=== PATIENT | male | born 1935 | race Caucasian/White ===

== ENCOUNTER 2016-06-15 21:59 | Emergency (ER) | payer MEDICARE, OTHER ==
[~2016-06-15] VITALS: Ht 182.9 cm; Wt 96.4 kg
[~2016-06-15 21:59] MED LIST: ASPI-558 PO; CHOL200014 PO; FINA5TAB40 PO; FURO20TA4 PO; HYDR-3995 PO; MAGN400T6 PO; OMEP20CA10 PO; POTA10CA37 PO; PRAM0.5T3 PO; RANI150T7 PO; RIVA20TA PO
--- OUTSIDE RECORDS SUMMARY | 2016-06-15 22:03 | XMS REPORT | Continuity of Care Document ---
Author Author [facility] Organization [facility] Address Unknown Phone Unavailable Care Team Providers Care Commutator V Ring Assembler Name Role Phone Primary Care Physician Unavailable Source Comments Some departments are not documenting in the electronic medical record. If you do not see the information that you expected, contact Release of Information in the Health Information Management department at [phone] for further assistance in locating additional records.[facility] Active Allergies and Adverse Reactions No Known Allergies Current Medications Prescription Sig. Disp. Refills Start End Date Status Date fish oil /omega-3 fatty Take 1 Cap by mouth Active acids (SEA-OMEGA) daily. 340/1000 mg capsule cholecalciferol (VITAMIN Take 2,000 Units by mouth Active D-3) 1,000 units tablet daily. amLODIPine (NORVASC) 2.5 Take 2.5 mg by mouth Active mg tablet daily. aspirin EC 81 mg tablet Take 81 mg by mouth Active daily. Take with food. pramipexole (MIRAPEX) 1 Take 1 mg by mouth daily. Active mg tablet Takes 0.5mg daily carvedilol (COREG) 12.5 Take 12.5 mg by mouth Active mg tablet daily. Take with food. warfarin (COUMADIN) 5 mg Take 5 mg by mouth daily. Active tablet Mon,wed,fri warfarin (COUMADIN) 2 mg Take 2 mg by mouth daily. Active tablet Sun,e,,sat finasteride (PROSCAR) 5 Take 5 mg by mouth daily. Active mg tablet HYDROcodone/acetaminophen Take 1 Tab by mouth as Active (+) (NORCO) 10/325 mg Needed for Pain tablet ranitidine(+) (ZANTAC) Take 150 mg by mouth Active 150 mg tablet twice daily. metoclopramide HCl Take 5 mg by mouth daily. Active (REGLAN) 5 mg tablet furosemide (LASIX) 20 mg Take 20 mg by mouth every Active tablet morning. Takes 1/2 tab daily potassium chloride(+) Take 10 mEq by mouth Active (KLOR-CON 8) 8 mEq tablet daily. magnesium oxide (MAG-OX) Take 400 mg by mouth Active 400 mg tablet daily. 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 He has no childhood history of a tic disorder, ADD/ADHD or OCD. He does not have myoclonus or lightening like extremely simple motor movement most often triggered by action. Clonazepam helped for a short period of time and the pramipexole has helped for the last five weeks. L ast Assessment & Plan: Formatting of this note may be different from the original. I discussed the diagnosis with the patient,his and their two daughters (who took notes). At the end of this visit I discussed the therapeutic options for the treatment of tic disorders, including Tourette's syndrome. We discuss the benefit and potential adverse effects of haloperidol, pimozide (ORAP), the SSRI family of antidepressants, the alpha 2 agonists clonidine and guanfacine (TENEX) (not recommended for him due to prior heart attacks), baclofen, topiramate and the the atypical antipsychotics. He feels that the pramipexole has completely stopped the movements for the last five weeks except when he was on the inhaler. This may be true pharmacological benefit or this may be the episodic nature of tic disorders. In evaluating treatment success or failure it is important to look at the trend over weeks to months, not day to day My suggestions for treatment, and the order that I suggest trying them should the pramipexole prove not to be of benefit are: Haloperidol starting at 0.5 mg BID and not increased above 5 mg a day Citalopram 20 mg a day up to 40 mg a day or escitalopram starting at 10 mg a day and not going above 30 mg a day Oxazepam 10 mg at HS for two weeks and then one twice a day thereafter Clonidine 0.1 mg at HS or guanfacine (TENEX) 1 mg at HS. For both of these his BP should be check daily in the morning and he should be warned about the potential for orthostatic hypotension Topiramate starting at 12.5 mg at bedtime and increased gradually every week until enough benefit or he experiences cognitive or behavioral side effect, or a maximum dose of 200 mg a day Repisidone 0.5 mg daily of BID (maximum dose 2 mg a day) or quetiapine 12.5 mg BID (maximum dose of 50 mg a day) Encounter Medications Medications fish oil /omega-3 fatty acids (SEA-OMEGA) 340/1000 mg capsule Sig: Take 1 Cap by mouth daily. cholecalciferol (VITAMIN D-3) 1,000 units tablet Sig: Take 2,000 Units by mouth daily. amLODIPine (NORVASC) 2.5 mg tablet Sig: Take 2.5 mg by mouth daily. aspirin EC 81 mg tablet Sig: Take 81 mg by mouth daily. Take with food. DISCONTD: clonazePAM (KLONOPIN) 0.5 mg tablet Sig: Take 0.5 mg by mouth daily. pramipexole (MIRAPEX) 1 mg tablet Sig: Take 1 mg by mouth daily. Takes 0.5mg daily carvedilol (COREG) 12.5 mg tablet Sig: Take 12.5 mg by mouth daily. Take with food. warfarin (COUMADIN) 5 mg tablet Sig: Take 5 mg by mouth daily. Mon,wed,fri warfarin (COUMADIN) 2 mg tablet Sig: Take 2 mg by mouth daily. Sun,tue,thur,sat finasteride (PROSCAR) 5 mg tablet Sig: Take 5 mg by mouth daily. HYDROcodone/acetaminophen(+) (NORCO) 10/325 mg tablet Sig: Take 1 Tab by mouth as Needed for Pain ranitidine(+) (ZANTAC) 150 mg tablet Sig: Take 150 mg by mouth twice daily. metoclopramide HCl (REGLAN) 5 mg tablet Sig: Take 5 mg by mouth daily. furosemide (LASIX) 20 mg tablet Sig: Take 20 mg by mouth every morning. Takes 1/2 tab daily potassium chloride(+) (KLOR-CON 8) 8 mEq tablet Sig: Take 10 mEq by mouth daily. magnesium oxide (MAG-OX) 400 mg tablet Sig: Take 400 mg by mouth daily. Patient Instructions Please keep on the pramipexole. I will send a letter to your health care provider detailing the medications that we discussed and the doses to start at. He will follow-up with his home [facility] health care providers. I also discussed with him about stretching his calf and thigh muscles prior to going to bed to help prevent the painful muscle cramps. Social History Tobacco Use Types Packs/Day Years Used Date Former Smoker Last Filed Vital Signs Vital Sign Reading Time Taken Blood Pressure 137/75 10/07/2015 10:51 AM CDT Pulse 65 10/07/2015 10:51 AM CDT Temperature - - Respiratory Rate - - Height 1.829 m (6') 10/07/2015 10:51 AM CDT Weight 89.812 kg (198 lb) 10/07/2015 10:51 AM CDT Body Mass Index 26.85 10/07/2015 10:51 AM CDT Oxygen Saturation - - Plan of Care Health Maintenance Due Date Last Done Comments Physical (Comprehensive) 12/23/1942 Exam Pertussis Vaccine 12/23/1946 Tetanus Vaccine 12/23/1952 Shingles Vaccine 1995 Prevnar/Pneumovax (#1) 12/23/2000 Influenza Vaccine 11/04/2016 Results from Last 3 Months Not on file
--- OUTSIDE RECORDS SUMMARY | 2016-06-15 22:03 | XMS REPORT | Referral Summary ---
Author Author [facility] Organization [facility] Address Unknown Phone Unavailable Care Team Providers Care Junior Oracle Dba Name Role Phone Neil Bello Primary Care Physician [phone] Encounter VC Date(s): 05/02/16 - 05/02/16 [facility] [address] [place] [address] [place] [phone] [place] Discharge Diagnosis: BPH (benign prostatic hypertrophy) Discharge Disposition: 01-Home or Self Care Attending Physician: Faraz Shea MD Admitting Physician: Faraz Shea MD Referring Physician: En Bello MD Vital Signs Most recent to 1 oldest [Reference Range]: Blood Pressure 118/68 mmHg [90-140/60-90 mmHg] (05/02/16 2:44 PM) Problem List Condition Effective Dates Status Health Status Informant Aortic stenosis, Active mild(Confirmed) Arthritis(Confirmed) Active BPH (benign Active prostatic hypertrophy)(Confirm ed) CAD (coronary artery Active disease)(Confirmed) Carpal tunnel Active syndrome, bilateral(Confirmed) Cataracts, Active bilateral(Confirmed) Chicken Active pox(Confirmed) Chronic Active pancreatitis(Confirm ed) DDD (degenerative Active disc disease), cervical(Confirmed) DDD (degenerative Active disc disease), lumbar(Confirmed) Dermatophytosis of Active nail(Confirmed) Irregular right Active sided prostate gland(Confirmed) Diverticulosis(Confi Active rmed) Dupuytrens Active contracture L palm(Confirmed) Elevated Active PSA(Confirmed) Hearing Active loss(Confirmed) High Active cholesterol(Confirme d) Hyperlipidemia(Confi Active rmed) Hypertension(Confirm Active ed) Nocturia(Confirmed) Active Obesity(Confirmed) Active patient Osteoarthritis(Confi Active rmed) Pain in Active limb(Confirmed) Prostatism(Confirmed Active ) Renal Active cyst(Confirmed) Sleep apnea - 2007 Active severe(Confirmed) Lumbar spinal Active stenosis(Confirmed) L 3rd trigger Active finger(Confirmed) Type II diabetes Active mellitus(Confirmed) Allergies, Adverse Reactions, Alerts No Known Medication Allergies Medications amLODIPine 2.5 mg oral tablet See Instructions, TAKE 1 TABLET EVERY DAY, # 90 tabs, 1 Refill(s), eRx: [facility], TAKE 1 TABLET EVERY DAY Start Date: 06/22/15 Status: Ordered Aspirin Low Dose 81 mg oral delayed release tablet 1 tabs, Oral, Daily Start Date: 11/15/13 Status: Ordered carvedilol 12.5 mg oral tablet See Instructions, TAKE 1/2 TABLET TWICE DAILY, # 60 tabs, 4 Refill(s), eRx: [facility], TAKE 1/2 TABLET TWICE DAILY Start Date: 02/09/15 Status: Ordered cephalexin 500 mg oral capsule 500 mg 1 caps, Oral, QID, TID, 0 Refill(s) Start Date: 04/28/16 Status: Ordered clonazePAM 0.5 mg oral tablet 0.5 mg 1 tabs, Oral, BID, Do not fill- medication is being filled by pt's neurologist, # 60 tabs, 0 Refill(s), other reason (Rx) Start Date: 04/06/15 Status: Ordered cyclobenzaprine 10 mg oral tablet 10 mg 1 tabs, Oral, Bedtime (once a day), as needed for spasm, # 30 tabs, 0 Refill(s), other reason (Rx) Start Date: 02/17/15 Status: Ordered finasteride 5 mg oral tablet See Instructions, TAKE 1 TABLET AT BEDTIME, # 90 tabs, 0 Refill(s), Pharmacy: [facility], TAKE 1 TABLET AT BEDTIME Start Date: 05/18/15 Status: Ordered Fish Oil See Instructions, fish oil-fat acid [id number] [id number] 1200mg ([id number] ) cap; ON HOLD Start Date: 11/15/13 Status: Ordered [employer] 10 mg-325 mg oral tablet 1 tabs, Oral, q4hr, as needed for pain, 0 Refill(s) Start Date: 07/24/15 Status: Ordered ranitidine 150 mg, Oral, Daily, 0 Refill(s) Start Date: 07/15/15 Status: Ordered Vitamin D3 0 Refill(s) Start Date: 07/24/15 Status: Ordered warfarin 1 mg oral tablet See Instructions, TAKE 1 TABLET EVERY DAY, # 90 tabs, 1 Refill(s), eRx: [facility], TAKE 1 TABLET EVERY DAY Start Date: 08/24/15 Status: Ordered warfarin 5 mg oral tablet See Instructions, TAKE 1 TABLET EVERY DAY, # 90 tabs, 1 Refill(s), eRx: [facility], TAKE 1 TABLET EVERY DAY Start Date: 08/24/15 Status: Ordered Results No data available for this section Immunizations Given and Recorded Vaccine Date Status Refusal Reason influenza virus vaccine, inactivated 12/26/14 Recorded influenza virus vaccine, live 01/03/12 Given pneumococcal 13-valent conjugate vaccine 12/26/14 Recorded tetanus toxoid 06/05/13 Given tetanus-diphth toxoids (Td) adult/adol 05/14/04 Given zoster vaccine live 10/04/11 Given Procedures Procedure Date Related Diagnosis Body Site S/P carpal tunnel release, right 05/16/07 Excision of Dupuytren's contracture of palm 2007 Release of trigger finger 2007 S/P carpal tunnel release, bilateral 2007 S/P cystoscopy 06/09/04 Transrectal needle biopsy of prostate 06/09/04 H/O cervical spine surgery Hernia repair History of lumbar spine surgery - rods S/p appendectomy S/P cataract extraction and insertion of intraocular lens S/p cholecystectomy S/P vasectomy Social History Social History Type Response Smoking Status Former smoker; Type: Cigarettes; Tobacco use per day: Pack ; Number of years: 30 Assessment and Plan Extracted from: Title: Office Visit Note Author: Faraz Shea MD Date: 05/02/16 Assessment/Plan BPH (benign prostatic hypertrophy) Going forwardI discussed with the patient about the option of following with me annually for his prostateversus following with his primary doctor and seeing me as necessary for any urological issues. I do not thinkthere is any benefit of PSA screeningfor him at his ageand considering his other medical issues. I also advised himthat he can stop taking finasteride. He said he will completethe once he has now and will stop. He'll follow with his primary doctor and see me as necessary.
--- OUTSIDE RECORDS SUMMARY | 2016-06-15 22:04 | XMS REPORT | Referral Summary ---
Author Author [facility] Organization [facility] Address Unknown Phone Unavailable Care Team Providers Care Proof Machine Operator Name Role Phone Neil Bello Primary Care Physician [phone] Encounter Date(s): 04/28/16 - 04/28/16 [facility], [address] [place] [phone] [place] Discharge Disposition: 01-Home or Self Care Attending Physician: Shahab Manjarrez APRN Admitting Physician: Shahab Manjarrez APRN Vital Signs Most recent to 1 oldest [Reference Range]: Temperature Tympanic 35.9 degC [36.6-38.1 degC] *LOW* (04/28/16 11:09 AM) Peripheral Pulse 93 bpm Rate [60-100 bpm] (04/28/16 11:09 AM) Respiratory Rate 18 br/min [14-20 br/min] (04/28/16 11:09 AM) Blood Pressure 118/58 mmHg [90-140/60-90 mmHg] (04/28/16 11:09 AM) SpO2 94 % (04/28/16 11:09 AM) Problem List Condition Effective Dates Status Health [...] DAY, # 90 tabs, 1 Refill(s), eRx: [facility], TAKE 1 TABLET EVERY DAY Start Date: 06/22/15 Status: Ordered Aspirin Low Dose 81 mg oral delayed release tablet 1 tabs, Oral, Daily Start Date: 11/15/13 Status: Ordered carvedilol 12.5 mg oral tablet See Instructions, TAKE 1/2 TABLET TWICE DAILY, # 60 tabs, 4 Refill(s), eRx: [facility], TAKE 1/2 TABLET TWICE [...] BEDTIME, # 90 tabs, 0 Refill(s), Pharmacy: [facility], TAKE 1 TABLET AT BEDTIME Start Date: 05/18/15 Status: Ordered Fish Oil See Instructions, fish oil-fat acid comb8-herb [id number] 1200mg ([id number] ) cap; ON HOLD Start Date: 11/15/13 Status: Ordered [place] 10 mg-325 mg oral tablet 1 tabs, [...] Number of years: 30 Assessment and Plan No data available for this section
[2016-06-15 22:05] VITALS: Ht 182.9 cm; Wt 96.4 kg
--- OUTSIDE RECORDS SUMMARY | 2016-06-15 22:05 | XMS REPORT | Continuity of Care Document ---
Author Author [facility] Organization [facility] Address Unknown Phone Unavailable Support Name Relationship Address Phone MEGHNA BARRON MD Caregiver [address] [place] [address] Unavailable SHAGUFTA KIMBALL Caregiver [address] [place] [address] Unavailable ANTONIO MANCILLA Next Of Kin [address] [place], [place] [phone] Insurance Providers Guarantor Sandeep Mancilla Address [address] [place] [address] Email DENIED/NO TO PT PORTAL Payer [employer] Policy Number [id number] Subscriber's Name Sandeep Mancilla Relationship 18 Self Group Number PLANE Effective Date 00 Payer Medicare Policy Number [id number] Subscriber's Name Sandeep Mancilla Relationship 18 Self Effective Date 00 Chief Complaint and Reason for Visit Chief Complaint Hypertension Reason for Visit Elevated blood pressure Problems Active Problems Medical Problem Onset Date Status Acute gastritis Unknown Acute Anticoagulated on Coumadin Unknown Chronic CAD (coronary artery disease) Unknown Chronic CHF (congestive heart failure) Unknown Chronic GERD (gastroesophageal reflux disease) Unknown Chronic HTN (hypertension) Unknown Chronic Hx of pulmonary embolus Unknown Acute Inadequate anticoagulation Unknown Acute Intractable myoclonic epilepsy Unknown Acute Myoclonic disorder Unknown Acute Myoclonus Unknown Acute Numbness and tingling of right face Unknown Acute Numbness of right hand Unknown Acute Pulmonary embolism Unknown Acute Restless legs syndrome Unknown Chronic Seizures Unknown Chronic Sleep apnea Unknown Chronic Warfarin-induced coagulopathy Unknown Acute Past Problems Medical Problem Onset Date Acute gastritis Unknown Cellulitis Unknown Cellulitis and abscess of leg Unknown Chest pain Unknown Coronary artery disease Unknown Elevated blood pressure Unknown Hx of pulmonary embolus Unknown Warfarin-induced coagulopathy Unknown Wound dehiscence Unknown Medications Current Home Medications Medication Dose Units Route Directions Days Qty Instructions Start Date Aspirin (Aspir 81) 81 Mg Tablet. 81 Mg Oral Daily 03/23/12 Cholecalciferol (Vitamin D3) (Vitamin D3) 2,000 Unit Tablet 2,000 Unit Oral Daily 07/08/15 Doxycycline Hyclate 100 Mg Capsule 100 Mg Oral Twice A Day Finasteride 5 Mg Tablet 5 Mg Oral Bedtime 06/02/09 Furosemide 20 Mg Tablet 1 Tab Oral Twice A Day 11/29/15 Hydrocodone/Acetaminophen (Hydrocodon-Acetaminophn 10-325) 1 Each Tablet 1 Tab Oral Every 6 Hours as needed for Pain 03/07/15 Magnesium Oxide 400 Mg Tablet 400 Mg Oral Daily 10/31/15 Nitroglycerin (Nitrostat) 0.4 Mg Tablet 0.4 Mg Oral Every 5 Minutes X 3 11/22/15 Omeprazole 20 Mg Capsule.dr 20 Mg Oral Before Breakfast 10/31/15 Potassium Chloride 10 Meq Capsule.er 10 Meq Oral Twice A Day Pramipexole Di-Hcl (Mirapex) 0.5 Mg Tablet 0.5 Mg Oral Twice A Day 08/19/15 Ranitidine Hcl 150 Mg Tablet 150 Mg Oral Twice A Day 08/19/15 Rivaroxaban (Xarelto) 20 Mg Tablet 20 Mg Oral Give With Supper Past Home Medications Medication Directions Ordered Status Aspirin 81 Mg Tablet, 1 Tab Oral Mon,Mon,And Mon05/27/09 Discontinued Carvedilol (Coreg) 12.5 Mg Tablet, 6.25 Mg Oral Twice A Day as needed for Hypotension 06/02/09 Discontinued Cholecalciferol (Vitamin D) 1,000 Unit Tablet, 1 Tab Oral Daily 06/02/09 Discontinued Docosahexanoic Acid/Epa (Fish Oil Conc 1,000 Mg Softgel) 1 Cap Capsule, 2 Cap Oral Daily 06/02/09 Discontinued Furosemide 40 Mg Tablet, 40 Mg Oral Twice A Day 11/22/15 Discontinued Lisinopril 20 Mg Tablet, 1 Tab Oral Daily 06/02/09 Discontinued Red Yeast Rice Extract (Red Yeast Rice) 600 Mg Capsule, 600 Mg Oral Daily Discontinued Rosuvastatin Calcium (Crestor) 5 Mg Tablet, 5 Mg Oral Daily 12/10/11 Discontinued Simvastatin 20 Mg Tablet, 1 Tab Oral Daily 06/02/09 Discontinued Warfarin Sodium 1 Mg Tablet, 1 Mg Oral Sututhsa@Hs 12/10/11 Discontinued Social History Social History Problem Response Recorded Date/Time Onset Date Status Hx Substance Use No 02/01/2016 8:29pm Not Applicable Not Applicable Hx Alcohol Use No 02/01/2016 8:29pm Not Applicable Not Applicable Has the pt used tobacco in the last 12 months No 08/19/2015 6:45pm Not Applicable Not Applicable Tobacco Usage none 07/08/2015 10:16am Not Applicable Not Applicable Query Response Start Date Stop Date Smoking Status Former smoker Hospital Discharge Instructions No hospital discharge instructions. Plan of Care Discharge Date 02/01/16 9:03pm Disposition 01 DISCHARGED HOME, SELF-CARE Condition at Discharge Improved Instructions/Education Provided High Blood Pressure Prescriptions See Medication Section Referrals SHAGUFTA KIMBALL Address: [address] [place] [address] Additional Instructions/Education If your blood pressure becomes elevated again sit or lay down and relax. Do not take repeated blood pressures. If you continue to have elevated blood pressure call your PCP for re-evaluation or you may return to ED. Follow treatment plan. Care Plan and Goals Physician Care Plan Problem: Elevated blood pressure Goal: Follow up with primary care provider Instructions: Take medications and follow care plan as discussed/written Functional Status No functional status results. Allergies, Adverse Reactions, Alerts Allergen Type Severity Reaction Status Last Updated hydrocodone bit Adverse Reaction Unknown HALLUCINATIONS Active 02/01/16 Bpjxtcz-Hxe-Iji Reductase Inhibitor Allergy Unknown Active 02/01/16 Immunizations Query Response on File Recorded Date/Time Hx Influenza Vaccination Y 01/1508/19/15 6:45pm Hx Pneumococcal Vaccination Y 201308/19/15 6:45pm Hx Tetanus, Diptheria, Pertussis UNKNOWN 03/23/12 6:57pm Hx Influenza Vaccination Y 01/1508/19/15 6:45pm Hx Tetanus, Diptheria, Pertussis UNKNOWN 03/23/12 6:57pm Hx Tetanus Toxoid Vaccination N "MANY YEARS AGO" 04/25/09 7:00pm Influenza Vaccine Hx 201502/01/16 8:29pm Tetanus Diptheria Vaccine History UTD 02/01/16 8:29pm Vital Signs Acute Vital Signs Vital Response Date/Time Temperature (Fahrenheit) 98.5 deg F (96.8 - 99.1) 02/01/2016 9:03pm Temperature (Calculated Celsius) 36.08124 degrees C (36.0 - 37.3) 02/01/2016 9:03pm Pulse Rate (adult) 87 bpm (60 - 100) 02/01/2016 9:03pm Respiratory Rate 18 breaths/min (10 - 20) 02/01/2016 9:03pm O2 Sat by Pulse Oximetry 97 % (90 - 100) 02/01/2016 9:03pm Blood Pressure 120/57 mm Hg 02/01/2016 9:03pm Height (Feet) 5 feet 02/01/2016 7:23pm Height (Inches) 11.00 inches 02/01/2016 7:23pm Weight (Kilograms) 93.300 kg 02/01/2016 7:23pm Body Mass Index (BMI) 28.0 02/01/2016 7:23pm Results Laboratory Results Test Name Result Units Flags Reference Collection Date/Time Result Date/ Time Comments Total Bilirubin 0.50 MG/DL 0.20-1.30 11/22/2015 2:51pm 11/22/2015 3: 22pm Alkaline Phosphatase 99 U/L 38-126 11/22/2015 2:51pm 11/22/2015 3:22pm Total Protein 6.9 G/DL 6.3-8.2 11/22/2015 2:51pm 11/22/2015 3:22pm Albumin 3.7 G/DL 3.5-5.0 11/22/2015 2:51pm 11/22/2015 3:22pm Globulin 3.2 G/DL 2.4-3.6 11/22/2015 2:51pm 11/22/2015 3:22pm Albumin/Globulin Ratio 1.2 RATIO 1.1-2.2 11/22/2015 2:51pm 11/22/2015 3 :22pm Aspartate Amino Transf (AST/SGOT) 18 U/L 17-59 11/22/2015 2:51pm 2015 3:22pm Alanine Aminotransferase (ALT/SGPT) 10 U/L L 21-72 11/22/2015 2:51pm 3:22pm Troponin I 0.042 ng/ml 0-0.12 11/22/2015 2:51pm 11/22/2015 3:33pm Troponin values with a difference of 55% increase from orginal troponin value represent a true biological DELTA value. (%increase Calc=Orginal Troponin value, divided by subsequent Troponin value, multiplied by 100) ML-Qax-T-Type Natriuretic Peptide 3570 PG/ML H 0-175 11/22/2015 2:51pm 11/22/2015 3:27pm Rule in cut points: <50 years old=450; 50-75 years old=900; >75 years old=1800; When utilizing ProBNP rule-in cut points, adjustment for impaired renal function is typically not required. Plasma Lactate 1.8 MMOL/L 0.6-2.2 11/22/2015 2:51pm 11/22/2015 3:17pm White Blood Count 5.2 T/MM3 4.5-11.0 11/29/2015 10:11/29/2015 10: 30pm Red Blood Count 3.84 M/MM3 L 4.50-5.90 11/29/2015 10:11/29/2015 10: 30pm Hemoglobin 12.0 GM/DL L 13.5-17.5 11/29/2015 10:11/29/2015 10:30pm Hematocrit 36.5 % L 41-53 11/29/2015 10:11/29/2015 10:30pm Mean Corpuscular Volume 95.1 UM3 80-100 11/29/2015 10:11/29/2015 10:30pm Mean Corpuscular Hemoglobin 31.3 UUG 26-34 11/29/2015 10:2015 10:30pm Mean Corpuscular Hemoglobin Concent 32.9 GM/DL 31-37 11/29/2015 10:11/29/2015 10:30pm RDW Standard Deviation 47.3 FL 36.9-50.2 11/29/2015 10:11/29/2015 10:30pm Platelet Count 267 T/MM3 130-400 11/29/2015 10:11/29/2015 10:30pm Mean Platelet Volume 7.9 UM3 L 9.4-12.4 11/29/2015 10:11/29/2015 10 :30pm Neutrophils (%) (Auto) 63.3 % 33-66 11/29/2015 10:11/29/2015 10: 30pm Lymphocytes (%) (Auto) 24.3 % 23-45 11/29/2015 10:11/29/2015 10: 30pm Monocytes (%) (Auto) 8.1 % 0-9.0 11/29/2015 10:11/29/2015 10:30pm Eosinophils (%) (Auto) 3.7 % 0-4 11/29/2015 10:11/29/2015 10:30pm Basophils (%) (Auto) 0.4 % 0-2 11/29/2015 10:11/29/2015 10:30pm Immature Granulocyte % (Auto) 0.2 % 0.0-0.5 11/29/2015 10:2015 10:30pm Absolute Neutrophils (auto) 3.3 T/MM3 1.8-7.7 11/29/2015 10:2015 10:30pm Absolute Lymphocytes (auto) 1.3 T/MM3 1-4.8 11/29/2015 10:2015 10:30pm Absolute Monocytes (auto) 0.4 T/MM3 0-0.8 11/29/2015 10:2015 10:30pm Absolute Eosinophils (auto) 0.2 T/MM3 0-0.5 11/29/2015 10:2015 10:30pm Absolute Basophils (auto) 0.0 T/MM3 0-0.2 11/29/2015 10:2015 10:30pm Absolute Immature Granulocyte (auto 0.01 T/MM3 0.00-0.03 11/29/2015 10: 11/29/2015 10:30pm Icterus Index < 2 0-7 11/29/2015 10:11/29/2015 10:38pm Chemistry Specimen Hemolysis < 15 0-25 11/29/2015 10:11/29/2015 10:38pm 0-25: Specimen Exhibited No Hemolysis. Turbidity < 20 0-20 11/29/2015 10:11/29/2015 10:38pm Sodium Level 139 MEQ/L 134-144 11/29/2015 10:11/29/2015 10:38pm Potassium Level 4.0 MEQ/L 3.6-5 11/29/2015 10:11/29/2015 10:38pm Chloride Level 104 MEQ/L 98-107 11/29/2015 10:11/29/2015 10:38pm Carbon Dioxide Level 23 MEQ/L 22-30 11/29/2015 10:22pm 11/29/2015 10: 38pm Anion Gap 12 MEQ/L 5-15 11/29/2015 10:22pm 11/29/2015 10:38pm Blood Urea Nitrogen 15.0 MG/DL 9-11/29/2015 10:22pm 11/29/2015 10: 38pm Creatinine 1.0 MG/DL 0.8-1.5 11/29/2015 10:22pm 11/29/2015 10:38pm BUN/Creatinine Ratio 15 RATIO 6-11/29/2015 10:22pm 11/29/2015 10: 38pm Glomerular Filtration Rate Calc 72 11/29/2015 10:22pm 11/29/2015 10 :38pm Glucose Level 179 MG/DL H 75-110 11/29/2015 10:pm 11/29/2015 10:38pm Calculated Osmolality 273 MOSM/KG 261-280 11/29/2015 10:pm 2015 10:38pm Calcium Level 9.2 MG/DL 8.4-10.2 11/29/2015 10:22pm 11/29/2015 10:38pm Microbiology Results Procedure Source Organism/Result Collection Date/Time Result Date/Time Result Status Blood Culture Peripheral/Iv Start NO GROWTH AFTER 5 DAYS 11/22/2015 2:51pm 11/27/2015 3:04pm Final WOUND CULTURE DEEP TISS-AER/AN Leg, Left Lower PREVOTELLA DISIENS 2015 10:20pm 12/05/2015 8:02am Final BACTEROIDES FRAGILIS 11/29/2015 10:20pm 12/05/2015 8:02am Final PSEUDOMONAS AERUGINOSA 11/29/2015 10:20pm 12/05/2015 8:02am Final ENTEROCOC FAECALIS - (GROUP D) 11/29/2015 10:20pm 12/05/2015 8:02am Final WOUND CULTURE DEEP TISS-AER/AN Leg, Left ANAEROCOCCUS PREVOTII 12/31/2015 11 :15am 01/10/2016 8:03am Final BACTEROIDES FRAGILIS 12/31/2015 11:15am 01/10/2016 8:03am Final FINEGOLDIA MAGNA 12/31/2015 11:15am 01/10/2016 8:03am Final PSEUDOMONAS AERUGINOSA 12/31/2015 11:15am 01/10/2016 8:03am Final ENTEROCOC FAECALIS - (GROUP D) 12/31/2015 11:15am 01/10/2016 8:03am Final Procedures Procedure Status Date Provider(s) CHEST X-RAY 2VW FRONTAL&LATL Completed 11/22/15 COMPREHEN METABOLIC PANEL Completed 11/22/15 ASSAY OF LACTIC ACID Completed 11/22/15 ASSAY OF NATRIURETIC PEPTIDE Completed 11/22/15 ASSAY OF TROPONIN QUANT Completed 11/22/15 COMPLETE CBC W/AUTO DIFF WBC Completed 11/22/15 BLOOD CULTURE FOR BACTERIA Completed 11/22/15 BLOOD CULTURE FOR BACTERIA Completed 11/22/15 THER/PROPH/DIAG IV INF INIT Completed 11/22/15 EMERGENCY DEPT VISIT Completed 11/22/15 [id number] ITEM OR SERVICE Completed 11/22/15 861673"INJECTION, CEFTRIAXONE SODIUM, PER 250 MG" Completed 11/22/15 886999"INFUSION, NORMAL SALINE SOLUTION , 250 CC" Completed 11/22/15 PLACE NEEDLE IN VEIN Completed 11/29/15 METABOLIC PANEL TOTAL CA Completed 11/29/15 COMPLETE CBC W/AUTO DIFF WBC Completed 11/29/15 CULTURE OTHR SPECIMN AEROBIC Completed 11/29/15 CULTR BACTERIA EXCEPT BLOOD Completed 11/29/15 SMEAR GRAM STAIN Completed 11/29/15 THER/PROPH/DIAG IV INF INIT Completed 11/29/15 EMERGENCY DEPT VISIT Completed 11/29/15 ELLIE SUBQ TISSUE 20 SQ CM/< Completed 12/02/15 ELLIE SUBQ TISSUE ADD-ON Completed 12/02/15 APPLY MULTLAY COMPRS LWR LEG Completed 12/02/15 147972"BORDER, EACH DRESSING" Completed 12/02/15 870688"WOUND CLEANSERS, ANY TYPE, ANY SIZE" Completed 12/02/15 [id number] ITEM OR SERVICE Completed 12/02/15 E&M LEVEL - FACILITY Completed 12/02/15 APPLY MULTLAY COMPRS LWR LEG Completed 12/09/15 868404"BORDER, EACH DRESSING" Completed 12/09/15 E&M LEVEL - FACILITY Completed 12/09/15 APPLY MULTLAY COMPRS LWR LEG Completed 12/24/15 E&M LEVEL - FACILITY Completed 12/24/15 ELLIE SUBQ TISSUE 20 SQ CM/< Completed 12/16/15 ELLIE SUBQ TISSUE ADD-ON Completed 12/16/15 APPLY MULTLAY COMPRS LWR LEG Completed 12/16/15 201616"BORDER, EACH DRESSING" Completed 12/16/15 002513"BORDER, EACH DRESSING" Completed 12/16/15 E&M LEVEL - FACILITY Completed 12/16/15 EXTREMITY STUDY Completed 12/16/15 ELLIE SUBQ TISSUE 20 SQ CM/< Completed 12/31/15 APPLY MULTLAY COMPRS LWR LEG Completed 12/31/15 CULTURE OTHR SPECIMN AEROBIC Completed 12/31/15 CULTR BACTERIA EXCEPT BLOOD Completed 12/31/15 CULTURE ANAEROBE IDENT EACH Completed 12/31/15 CULTURE ANAEROBE IDENT EACH Completed 12/31/15 CULTURE ANAEROBE IDENT EACH Completed 12/31/15 CULTURE AEROBIC IDENTIFY Completed 12/31/15 CULTURE AEROBIC IDENTIFY Completed 12/31/15 MICROBE SUSCEPTIBLE DIFFUSE Completed 12/31/15 MICROBE SUSCEPTIBLE DIFFUSE Completed 12/31/15 MICROBE SUSCEPTIBLE DIFFUSE Completed 12/31/15 MICROBE SUSCEPTIBLE DIFFUSE Completed 12/31/15 MICROBE SUSCEPTIBLE DIFFUSE Completed 12/31/15 MICROBE SUSCEPTIBLE DIFFUSE Completed 12/31/15 MICROBE SUSCEPTIBLE DIFFUSE Completed 12/31/15 MICROBE SUSCEPTIBLE DIFFUSE Completed 12/31/15 MICROBE SUSCEPTIBLE DIFFUSE Completed 12/31/15 MICROBE SUSCEPTIBLE DIFFUSE Completed 12/31/15 MICROBE SUSCEPTIBLE DIFFUSE Completed 12/31/15 MICROBE SUSCEPTIBLE DIFFUSE Completed 12/31/15 MICROBE SUSCEPTIBLE SHARON Completed 12/31/15 MICROBE SUSCEPTIBLE SHARON Completed 12/31/15 SMEAR GRAM STAIN Completed 12/31/15 918757"BORDER, EACH DRESSING" Completed 12/31/15 718008"BORDER, EACH DRESSING" Completed 12/31/15 [id number] ITEM OR SERVICE Completed 12/31/15 E&M LEVEL - FACILITY Completed 12/31/15 ELLIE SUBQ TISSUE 20 SQ CM/< Completed 01/04/16 APPLY MULTLAY COMPRS LWR LEG Completed 01/04/16 622612"BORDER, EACH DRESSING" Completed 01/04/16 858782"BORDER, EACH DRESSING" Completed 01/04/16 [id number] ITEM OR SERVICE Completed 01/04/16 E&M LEVEL - FACILITY Completed 01/04/16 APPLY MULTLAY COMPRS LWR LEG Completed 01/06/16 228548"BORDER, EACH DRESSING" Completed 01/06/16 E&M LEVEL - FACILITY Completed 01/06/16 Encounters Encounter Location Arrival/Admit Date Discharge/Depart Date Attending Provider Departed Emergency Room [facility] 02/01/16 7:15pm 02/01/16 9: 03pm MEGHAN BARRON MD Registered Clinic [facility] 02/01/16 8:49am AGUILAR ARANGO MD Registered [facility] 01/25/16 10:05am PRAMOD WRIGHT MD Registered Clinic [facility] 01/25/16 9:24am AGUILAR ARANGO MD Registered Clinic [facility] 01/21/16 7:52am AGUILAR ARANGO MD Registered Clinic [facility] 01/20/16 10:36am GIOVANNI MORALES MD Registered [facility] 01/18/16 9:28am AGUILAR ARANGO MD Registered [facility] 01/14/16 10:21am AGUILAR ARANGO MD Registered Clinic [facility] 01/11/16 10:47am AGUILAR ARANGO MD Registered Clinic [facility] 01/06/16 9:52am GIOVANNI MORALES MD Registered Clinic [facility] 01/04/16 10:56am AGUILAR ARANGO MD Registered [facility] 12/31/15 10:40am AGUILAR ARANGO MD Registered [facility] 12/24/15 1:20pm AGUILAR ARANGO MD Registered [facility] 12/16/15 11:57am AGUILAR ARANGO MD Registered [facility] 12/16/15 10:22am AGUILAR ARANGO MD Registered Clinic [facility] 12/09/15 9:21am AGUILAR ARANGO MD Registered Clinic [facility] 12/02/15 7:56am AGUILAR ARANGO MD Departed Emergency Room [facility] 11/29/15 9:26pm 11/29/15 11: 46pm MEGHAN BARRON MD Departed Emergency Room [facility] 11/22/15 2:19pm 11/22/15 4: 18pm ELISABET SEAMAN DO Recent Diagnosis
--- OUTSIDE RECORDS SUMMARY | 2016-06-15 22:05 | XMS REPORT | Summary of Care ---
Author Author Jorge FERNANDEZMary Jane Organization Unknown Address [address], [place] [address] Phone Unavailable Care Team Providers Care Dry Placer Machine Operator Name Role Phone Mary Jane Patel APRN Unavailable Unavailable Griffin Rose, Melonie Unavailable Unavailable Jasmyne Rose, Alba Unavailable Unavailable Shon, L Unavailable Unavailable Unavailable Unavailable Functional Status Name Dates Details Functional status health issues are not documented Status: Name Dates Details Cognitive status health issues are not documented Status: Problems Name Dates Details Tinnitus of left ear (388.30, H93.12) Status: Active Sensorineural hearing loss (389.10, H90.5) Status: Active 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 Quantity: 30 * Start 23-Jan-2014 Active AmLODIPine Besylate 2.5 MG Oral Tablet TAKE 1 TABLET DAILY. * Quantity: 90 Refills: 3 * Start 23-Jan-2014 Active Aspirin 81 MG TABS TAKE 1 TABLET DAILY. * Refills: 0 * Start 23-Jan-2014 Active Finasteride 5 MG Oral Tablet TAKE ONE TABLET BY MOUTH DAILY * Quantity: 90 Refills: 2 * Start 23-Jan-2014 Active Vitamin D3 2000 UNIT Oral Capsule take 1 capsule daily * Refills: 0 * Start 23-Jan-2014 Active Oxford 10-325 MG Oral Tablet TAKE 1 TABLET EVERY 4 TO 6 HOURS NEEDED FOR PAIN. * Refills: 0 * Start 02-Jul-2015 Active RaNITidine HCl - 150 MG Oral Tablet 1 PO BID x 90 days * Quantity: 180 Refills: 0 Ankush Moya M.D. * Start 02-Jul-2015 Active Pramipexole Dihydrochloride 0.5 MG Oral Tablet * Refills: 0 Toan Medley M.D. * Start Active Furosemide 20 MG Oral Tablet TAKE 1/2 TABLET DAILY. * Refills: 0 Toan Medley M.D. * Start Active Omeprazole 20 MG Oral Capsule Delayed Release * Refills: 0 Toan Medley M.D. * Start 01-Dec-2015 Active Xarelto 20 MG Oral Tablet * Refills: 0 Toan Medley M.D. * Start 01-Dec-2015 Active Potassium Chloride ER 10 MEQ Oral Tablet Extended Release * Refills: 0 * Start 01-Dec-2015 Active Magnesium Oxide 400 MG Oral Capsule * Refills: 0 * Start 01-Dec-2015 Active LevoFLOXacin 750 MG Oral Tablet * Refills: 0 * Start 17-Dec-2015 Active Supplies AutoBiPAP 12/16 cm H2O, Permanent use, G47.33, Heated humidity, [id number], mask, headgear, filters, heated tubing, water chamber,chinstrap * Quantity: 1 Refills: 0 Toan Medley M.D. * Start 17-Dec-2015 Active Supplies please increase BiPAP pressures to ipap of 14 epap of 8, DX KOTA G47.33 * Quantity: 1 Refills: 0 TungMary Jane romero APRN * Start 17-Mar-2016 Active Allergies and Adverse Reactions Name Dates Details No Known Drug Allergies (Allergy) Status: Active Past Medical History Name Dates Details History of fatigue (V13.89, Z87.898) Status: Resolved History of heart disease (V12.50, Z86.79) Status: Resolved History of hyperlipidemia (V12.29, Z86.39) Status: Resolved History of hypertension (V12.59, Z86.79) Status: Resolved History of shortness of breath (V13.89, Z87.898) Status: Resolved History of sleep apnea (V13.89, Z86.69) Status: Resolved Procedures Procedure Dates Details History of Back Surgery Procedures not documented Immunization Name Dates Details Immunizations not documented Family History Name Dates Details Family history of cardiac disorder (V17.49, Z82.49) Comments: Family History Status: Active Family history of diabetes mellitus (V18.0, Z83.3) Comments: Family History Status: Active Family history of malignant neoplasm (V16.9, Z80.9) Comments: Family History Status: Active Social History Name Dates Details - Status: Name Dates Details Former smoker Vital Signs Date Test Result Details 17-Mar-2016 11:01 BP Systolic 146 mm[Hg] Status: Comments: Location: ; Position: BP Diastolic 74 mm[Hg] Status: Comments: Location: ; Position: Heart Rate 80 /min Status: Comments: Location: ; Physical Findings 20 Status: Comments: Respiration Height 72 in Status: Weight 209 lb Status: Physical Findings 96 Status: Comments: O2 Saturation Body Mass Index Calculated 28.35 kg/m2 Status: Body Surface Area Calculated 2.17 m2 Status: Results Date Description Value Details Results not documented Plan of Care Name Dates Details Planned Observations Planned Goals not documented Planned Encounters Appointment; Provider: Mary Jane Patel A.P.R.N. On 16-Jun-2016 10:00 Interventions Provided Medication Changes* Supplies - Start Instructions Name Dates Details Instructions not documented Encounters Appointment; Toan Medley M.D. Encounter Diagnosis: Problem not documented On 17-Dec-2015 10:00 Appointment; Toan Medley M.D. Encounter Diagnosis: Problem not documented On 01-Dec-2015 09:00 Appointment; Toan Medley M.D. Encounter Diagnosis: Problem not documented On 09:15 Appointment; Ankush Moya M.D. Encounter Diagnosis: Problem not documented On 02-Jul-2015 08:30
--- OUTSIDE RECORDS SUMMARY | 2016-06-15 22:06 | XMS REPORT | Continuity of Care Document ---
Author Author [facility] Organization [facility] Address Unknown Phone Unavailable Allergies Active Description Code Type Severity Reaction Onset Reported/Identified Relationship to Patient Clinical Status Yes NKDA N/A N/A Yes No Known Drug Intolerances No Known Drug Intolerances Drug Allergy Unknown N/A 12/31/2001 Yes No Known Contrast Allergies No Known Contrast Allergies Drug Allergy Unknown N/A 01/02/2007 Yes No Known Drug Allergies No Known Drug Allergies Drug Allergy Unknown N/A 01/02/2007 Yes No Known Food Allergies No Known Food Allergies Drug Allergy Unknown N/A 01/02/2007 Yes No Known Other Allergies No Known Other Allergies Drug Allergy Unknown N/A 01/02/2007 Yes HYDROcodone NKMA N/A Itching 07/03/2013 Yes traMADol NKMA N/A significant itching/restlessne 07/03/2013 Yes Atorvastatin Calcium NKMA N/A [id number] 11/15/2013 Yes Pravastatin Sodium NKMA N/A [id number] 11/15/2013 Yes hydrocodone hydrocodone Drug Allergy Unknown ITCHING SOMETIMES 01/06/2014 Yes No Known Drug Intolerances No Known Drug Intolerances Drug Allergy Unknown NONE 01/06/2014 Yes No Known Medication Allergies NKMA N/A N/A 02/25/2014 Medications Problems Date Dx Coded Attending Type Code Diagnosis Diagnosed By 01/07/2014 Neel Guzmán MD 272.0 PURE HYPERCHOLESTEROLEM 01/07/2014 Neel Guzmán MD 272.4 HYPERLIPIDEMIA NEC/NOS 01/07/2014 Neel Guzmán MD 327.23 OBSTRUCTIVE SLEEP APNEA (ADULT) (PEDIATRIC ) 01/07/2014 Neel Guzmán MD 401.9 HYPERTENSION NOS 01/07/2014 Neel Guzmán MD 412 OLD MYOCARDIAL INFARCT 01/07/2014 Neel Guzmán MD 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 01/07/2014 Neel Guzmán MD 428.0 CONGESTIVE HEART FAILURE NOS 01/07/2014 Neel Guzmán MD 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 01/07/2014 Neel Guzmán MD 716.90 ARTHROPATHY NOS-UNSPEC 01/07/2014 Neel Guzmán MD 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 01/07/2014 Neel Guzmán MD 722.71 CERV DISC DIS W MYELOPAT 01/07/2014 Neel Guzmán MD 722.73 LUMB DISC DIS W MYELOPAT 01/07/2014 Neel Guzmán MD 737.10 KYPHOSIS NOS 01/07/2014 Neel Guzmán MD 790.29 OTHER ABNORMAL GLUCOSE 01/07/2014 Neel Guzmán MD V12.51 HX-VENOUS THROMBOSIS EMBOLISM 01/07/2014 Neel Guzmán MD V15.82 HISTORY OF TOBACCO USE 01/07/2014 Neel Guzmán MD V45.4 ARTHRODESIS STATUS 01/07/2014 Neel Guzmán MD V45.82 PERCUTANEOUS TRANSLUM CORON ANGIOPLASTY STATUS 01/07/2014 Neel Guzmán MD V58.61 ANTICOAGULANTS,LT,CURRENT USE 01/07/2014 Neel Guzmán MD V58.66 LONG-TERM (CURRENT) USE OF ASPIRIN Procedures Code Description Performed By Performed On 38.91 ARTERIAL CATHETERIZATION Neel Guzmán MD 01/07/2014 41.98 BONE MARROW OPS Neel Maier MD 01/07/2014 77.79 EXCISE BONE FOR GFT NEC Neel Guzmán MD 01/07/2014 81.05 DORSAL DORSOLUMBAR FUSION OF POSTERIOR COL/TECHN Neel Guzmán MD 01/07/2014 81.63 FUSION/REFUS OF 4-8 VERTEBRAE Neel Guzmán MD 01/07/2014 Results Test Result Range HEMOGLOBIN - 01/07/14 05:35 MEAN CELL VOLUME 90.6 fl 80.0-100.0 HEMOGLOBIN 14.9 gm/dL 14.0-18.0 PROTHROMBIN TIME WITH INR - 01/07/14 05:35 INTERNATIONAL NORMAL RATIO 1.1 0.9-1.1 PROTHROMBIN TIME 11.6 sec 9.3-12.2 METABOLIC PANEL, BASIC - 01/07/14 05:35 POTASSIUM 4.4 mmol/L 3.5-5.3 EST GFR (MDRD) > 60 mL/min > 59 ANION GAP 9 mmol/L 5-15 EST CrCl (CG) > 60 mL/min > 59 GLUCOSE 143 mg/dL 70-99 CALCIUM 9.1 mg/dL 8.5-10.1 BLOOD UREA NITROGEN 18 mg/dL 7-20 CREATININE 0.9 mg/dL 0.8-1.3 SODIUM 141 mmol/L 135-148 CHLORIDE 106 mmol/L 98-110 CARBON DIOXIDE 26 mmol/L 21-32 ARTERIAL BLOOD GAS - 01/07/14 10:45 ABG BASE EXCESS -5.3 meq/L -3.0-3.0 ABG BICARBONATE 18.7 meq/L 23.0-28.0 ABG PCO2 32 mm Hg 34-45 ABG PH 7.39 7.35-7.45 ABG PO2 298 mm Hg 75-100 ABG O2 SATURATION 99 % 93-100 HGB HCT (CCL) - 01/07/14 10:45 MEAN CELL VOLUME 91.3 fl 80.0-100.0 HEMOGLOBIN 11.3 gm/dL 14.0-18.0 HEMATOCRIT 33.5 % 40.0-54.0 POTASSIUM (CCL) - 01/07/14 10:45 POTASSIUM 3.8 mmol/L 3.5-5.3 GLUCOSE (CCL) - 01/07/14 10:45 GLUCOSE 169 mg/dL 70-99 CBC - 01/08/14 05:01 MEAN CELL HGB 31.1 pg 27.0-33.0 MEAN CELL HGB CONCENTRATION 34.1 g/dL 32.0-37.0 MEAN CELL VOLUME 91.2 fl 80.0-100.0 RED BLOOD CELL 3.76 m/cumm 4.00-6.00 RED CELL DISTRIBUTION WIDTH 14.0 % 11.0- 15.6 WHITE BLOOD CELL 10.4 k/cumm 5.0-10.0 HEMOGLOBIN 11.7 gm/dL 14.0-18.0 HEMATOCRIT 34.3 % 40.0-54.0 PLATELET COUNT 160 k/cumm 150-400 METABOLIC PANEL, BASIC - 01/08/14 05:01 POTASSIUM 4.5 mmol/L 3.5-5.3 EST GFR (MDRD) > 60 mL/min > 59 ANION GAP 8 mmol/L 5-15 EST CrCl (CG) > 60 mL/min > 59 GLUCOSE 191 mg/dL 70-99 CALCIUM 8.4 mg/dL 8.5-10.1 BLOOD UREA NITROGEN 14 mg/dL 7-20 CREATININE 0.8 mg/dL 0.8-1.3 SODIUM 139 mmol/L 135-148 CHLORIDE 105 mmol/L 98-110 CARBON DIOXIDE 26 mmol/L 21-32 HEMOGLOBIN A1C - 01/08/14 11:55 HEMOGLOBIN A1C 6.3 % < 5.7 GLUCOSE (POC) - 01/08/14 15:37 GLUCOSE (POC) 143 mg/dL 70-99 GLUCOSE (POC) - 01/09/14 11:55 GLUCOSE (POC) 196 mg/dL 70-99 GLUCOSE (POC) - 01/09/14 15:08 GLUCOSE (POC) 219 mg/dL 70-99 GLUCOSE (POC) - 01/09/14 22:11 GLUCOSE (POC) 147 mg/dL 70-99 GLUCOSE (POC) - 01/10/14 05:27 GLUCOSE (POC) 175 mg/dL 70-99 GLUCOSE (POC) - 01/10/14 10:44 GLUCOSE (POC) 283 mg/dL 70-99 GLUCOSE (POC) - 01/10/14 14:41 GLUCOSE (POC) 135 mg/dL 70-99 Encounters ACCT No. Visit Date/Time Discharge Status Pt. Type Provider Facility Loc./Unit Complaint [id number] 06/05/2013 14:37:00 06/05/2013 23 :59:59 CLS Outpatient [id number] 04/02/2013 14:53:00 04/02/2013 23 :59:59 CLS Outpatient
--- OUTSIDE RECORDS SUMMARY | 2016-06-15 23:41 | XMS REPORT | Continuity of Care Document ---
Author Author [facility] Organization [facility] Address Unknown Phone Unavailable Care Team Providers Care Ammonia Refrigeration Worker Name Role Phone Primary Care Physician Unavailable Source Comments Some departments are not documenting in the electronic medical record. If you do not see the information that you expected, contact Release of Information in the Health Information Management department at [phone] for further assistance in locating additional records.[facility] Active Allergies and Adverse Reactions No [...] at. He will follow-up with his home [facility] health care providers. I also discussed with [...]
--- OUTSIDE RECORDS SUMMARY | 2016-06-15 23:44 | XMS REPORT | Continuity of Care Document ---
Author Author [facility] Organization [facility] Address Unknown Phone Unavailable Allergies Active [...] itching/restlessne 07/03/2013 Yes Atorvastatin Calcium NKMA N/A [id number] 11/15/2013 Yes Pravastatin Sodium NKMA N/A [id number] 11/15/2013 Yes hydrocodone hydrocodone Drug Allergy Unknown ITCHING SOMETIMES 01/06/2014 Yes No Known Drug Intolerances No Known Drug Intolerances Drug Allergy Unknown NONE 01/06/2014 Yes No Known Medication Allergies NKMA N/A N/A 02/25/2014 Medications Problems Date Dx Coded Attending Type Code Diagnosis Diagnosed By 01/07/2014 Neel Guzámn MD 272.0 PURE HYPERCHOLESTEROLEM 01/07/2014 Neel Guzmán MD 272.4 HYPERLIPIDEMIA NEC/NOS 01/07/2014 Neel Guzmán MD 327.23 OBSTRUCTIVE SLEEP APNEA (ADULT) (PEDIATRIC ) 01/07/2014 Neel Guzmán MD 401.9 HYPERTENSION NOS 01/07/2014 Neel Guzmán MD 412 OLD MYOCARDIAL INFARCT 01/07/2014 Neel Guzmán MD 414.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 Type Provider Facility Loc./Unit Complaint [id number] 06/05/2013 14:37:00 06/05/2013 23 :59:59 CLS Outpatient [id number] 04/02/2013 14:53:00 04/02/2013 23 :59:59 CLS Outpatient
[2016-06-15] MEDS ORDERED: LORAZEPAM 2 MG/ML INJECTION IM ONE (23:45)
[2016-06-15] MEDS ORDERED: NORMAL SALINE 1,000 ML IV ONE (23:45)
[2016-06-16 00:01] LABS: BASOPHILS % (AUTO) 0.3 % (0-2); EOSINOPHILS # (AUTO) 0.1 T/MM3 (0-0.5); HCT - HEMATOCRIT 40.8 % (41-53); IMMATURE GRANULOCYTE # (AUTO) 0.01 T/MM3 (0.00-0.03); IMMATURE GRANULOCYTE % (AUTO) 0.2 % (0.0-0.5); LYMPHOCYTES # (AUTO) 2.3 T/MM3 (1-4.8); LYMPHOCYTES % (AUTO) 38.2 % (23-45); MEAN CORPUSCULAR HGB 29.9 UUG (26-34); MEAN CORPUSCULAR HGB CONC(MCHC 34.3 GM/DL (31-37); MEAN PLATELET VOLUME 8.5 UM3 (9.4-12.4); MONOCYTES # (AUTO) 0.4 T/MM3 (0-0.8); MONOCYTES % (AUTO) 7.2 % (0-9.0); NEUTROPHILS #(AUTO)-ABSOLUTE 3.1 T/MM3 (1.8-7.7); NEUTROPHILS % (AUTO) 52.1 % (33-66); RED BLOOD COUNT 4.69 M/MM3 (4.50-5.90)
[2016-06-16 00:11] LABS: ANION GAP 14 MEQ/L (5-15); BUN/CREATININE RATIO 36 RATIO (6-26); CALCIUM 9.3 MG/DL (8.4-10.2); CHLORIDE 105 MEQ/L (98-107); CK - CPK 270 U/L (55-170); CO2 - CARBON DIOXIDE 25 MEQ/L (22-30); CREATININE 0.8 MG/DL (0.8-1.5); GLOMERULAR FILTRATION RATE 93; GLUCOSE 153 MG/DL (75-110); POTASSIUM 4.2 MEQ/L (3.6-5); SODIUM 144 MEQ/L (134-144)
--- NOTE | 2016-06-16 00:21 | ERPDOC ---
Departure Disposition Decision Date: Jun 16, 2016 Disposition Decision Time: 00:36 Disposition: 01 DISCHARGED HOME, SELF-CARE Impression Impression Impression: Primary Impression: Myoclonus Additional Impression: KOTA treated with BiPAP Severity: Severe Condition: Improved Seen By: Physician only Referrals: SHAGUFTA KIMBALL (Family) 1 Week GARFIELD ZAMORA MD 1 Week Patient Instructions: Muscle Spasm (ED) Problems/Meds/Labs Reviewed?: Yes Medications reviewed and manag: Yes Additional Instructions: We have treated your spasms in the ER. Take the depakote at night to help with your spasms. Use the klonazepam only for spasms that don't respond to the depakote. Follow up with your doctor. Call Dr. Zamora's office for a follow up appointment. Follow up care ordered?: Yes Mental Status: Alert, Oriented Scripts Clonazepam (Klonopin) 0.5 Mg Tablet 0.5 TAB PO [id number] Y for SPASMS, #14 TAB Prov: JULYELISABET DO 06/16/16 Divalproex Sodium (Depakote ER) 500 Mg Tab.er.24h 1 TAB PO HS for 30 Days, #30 TAB Prov: JULYELISABET DO 06/16/16 HPI - General Medical General Chief Complaint: Headache Stated Complaint: JERKING WILL NOT STOP Time Seen by Provider: 23:31 Source: patient, family Exam Limitations: no limitations HPI - General Medical Initial Comments 80yo man presented to the ER tonight for tremors/spasms. Pt has a chronic h/o spasms, but has not had a solid dx, despite referral to several specialists. Pt has been taking mirapex 0.5mg bid, which was effective initially, but has had to be increased. Pt was seen by Dr. Rodriguez in [place]; then sent to [facility] where it was suggested that he had a tic disorder. Pt has not followed up with Dr. Rodriguez. Occurred At: home Onset: Rapid Duration: 1-3 hrs Severity: moderate Hx of Similar Symptoms: Yes Allergies: Coded Allergies: Swvazwu-Dgf-Opd Reductase Inhibitor (Verified Allergy, Unknown, 06/15/16) hydrocodone bit (Verified Adverse Reaction, Unknown, HALLUCINATIONS, ) Past History Patient Surgical History CABG- October of 2015 Past Medical History Metabolic: hypertension ENMT: sleep apnea Cardiac: A-fib, CAD, [place] Respiratory: pulmonary embolus GI: gallbladder disease Male: BPH Neurological: seizures Musculoskeletal: back pain, neck pain Hematologic: DVT Surgical History General: appendix, back, gallbladder, hernia, neck Cardiac: cardiac bypass, cardiac cath Joint: carpal tunnel Family History Family PMH: FOUND: hypertension Vaccines Hx Influenza Vaccination: Yes (01/15) Hx Pneumococcal Vaccination: Yes (2013) Social History Substance Use Type: does not use Alcohol Intake: none Marital Status: Sexuality: female partner Household Members: spouse Review of Systems Musculoskeletal General: cramps, pain, weakness Comments Shaking All other Systems All Other Systems: Reviewed and Negative Physical Exam General General Nourishment: well nourished, well developed, appears stated age, no acute distress, adult, obese General Body Habitus: well groomed Vitals and Pain First Documented Vital Signs Date Time Temp Pulse Resp B/P Pulse Ox O2 Delivery O2 Flow Rate FiO2 06/15/16 22:05 98.3 92 14 142/65 98 Room Air Weight: Kilograms: 96.400 Height (feet): 6 Height (inches): 0 Triage Pain Scale: RN VS reviewed by Provider: Yes Musculoskeletal (brief) Musculoskeletal Brief: NOT FOUND: deformity, loss of motion, spasm, tenderness Comments Periodic, whole-body spasms. Pt does not lose consciousness, no post-ictal period. No loss of bowel or bladder. Neurologic (brief) Neurological Brief: FOUND: CN w/o gross def to obs, DTR 2/4 all extremities, gait w/o gross def to obs, motor-no gross deficits, sensory-no gross deficits, NOT FOUND: Babinski Supervisory Exam Head: atraumatic Eyes: PERRL Nares: no exudate Neck: trachea midline Chest: symmetric Abdomen: non-distended Musculoskeletal: no deformity or atrophy Skin: pink, dry Psychological: alert, appropriate Differential Diagnoses Considering: CVA, DKA, Encephalitis, Hypo/Hyperglycemia, Hypo/Hyperkalemia, Hypo/Hypernatremia, Metabolic, Psychosis, Seizure Progress Results/Orders Orders Procedure Category Date Status Time Lorazepam (Ativan) PHA 06/15/16 Complete 23:45 Iv Lock (Ed Only) EDM 06/15/16 Transmitted 23:45 Cbc W/Auto LAB 06/15/16 Complete Diff-Reflex Manual 23:45 Bmp - Basic Metabolic LAB 06/15/16 Complete Panel 23:45 Normal Saline (Normal PHA 06/15/16 Complete Saline Iv) 23:45 Ck - Cpk LAB 06/15/16 Complete 23:55 Divalproex Er PHA 06/16/16 Complete (Depakote Er) 01:00 Lab Results Laboratory Tests Test 06/15/16 23:55 White Blood Count 6.0T/MM3 Red Blood Count 4.69M/MM3 Hemoglobin 14.0GM/DL Hematocrit 40.8% Mean Corpuscular Volume 87.0UM3 Mean Corpuscular Hemoglobin 29.9UUG Mean Corpuscular Hemoglobin Concent 34.3GM/DL RDW Standard Deviation 44.0FL Platelet Count 198T/MM3 Mean Platelet Volume 8.5UM3 Immature Granulocyte % (Auto) 0.2% Neutrophils (%) (Auto) 52.1% Lymphocytes (%) (Auto) 38.2% Monocytes (%) (Auto) 7.2% Eosinophils (%) (Auto) 2.0% Basophils (%) (Auto) 0.3% Absolute Immature Granulocyte (auto 0.01T/MM3 Absolute Neutrophils (auto) 3.1T/MM3 Absolute Lymphocytes (auto) 2.3T/MM3 Absolute Monocytes (auto) 0.4T/MM3 Absolute Eosinophils (auto) 0.1T/MM3 Absolute Basophils (auto) 0.0T/MM3 Turbidity < 20 Sodium Level 144MEQ/L Potassium Level 4.2MEQ/L Chloride Level 105MEQ/L Carbon Dioxide Level 25MEQ/L Anion Gap 14MEQ/L Blood Urea Nitrogen 29.0MG/DL Creatinine 0.8MG/DL Glomerular Filtration Rate Calc 93 BUN/Creatinine Ratio 36RATIO Glucose Level 153MG/DL Calculated Osmolality 286MOSM/KG Calcium Level 9.3MG/DL Icterus Index < 2 Total Creatine Kinase 270U/L Chemistry Specimen Hemolysis < 15 Medications Current ED Medications Lorazepam 1 mg 1 mg O ONCE IM Last administered on 06/15/16 23:35; Start 02/19 at 23:45; Stop 06/15/16 at 23:46; Status DC Sodium Chloride (Normal Saline IV) 1,000 ml @ 0 mls/hr Q0M ONCE IV Last administered on 06/16/16 00:07; Start 06/15/16 at 23:45; Stop 06/15/16 at 23:47 ; Status DC Divalproex Sodium (Depakote Er) 500 mg O ONCE PO Last administered on t 01:07; Start 06/16/16 at 01:00; Stop 06/16/16 at 01:01; Status DC Progress Progress Discussed ddx, prognosis, and treatment with pt and family who voiced understanding. F/u with Dr. Zamora as outpt. Consult/PCP Consult/PCP : Physician Contacted: Dr. Zamora Time Called: 00:21 Time of first response: 00:30 Type of discussion: Phone Consult/PCP Discussion Details Discussed presentation, prior evaluation, and possible treatment. Recommends [facility] depakote with prn smith. ELISABET SEAMAN DO Jun 16, 2016 00:21
--- NOTE | 2016-06-16 00:30 | NUR ---
PROVIDER MAY IN TO SEE PATIENT.
[2016-06-16] MEDS ORDERED: DIVA500T4 PO (00:38)
[2016-06-16] MEDS ORDERED: CLON0.5T PO (00:38)
[2016-06-16] MEDS ORDERED: DIVALPROEX ER 500 MG TABLET PO ONE (01:00)
[2016-06-16 01:14] VITALS: BP 142/67; PULSE 76; RESP 16; TEMP 98.3; O2SAT 98
== END 2016-06-16 01:14 | disposition home or self-care (01) ==
LOC: ED 21:59
DX: G25.3 Myoclonus (principal); G47.33 Obstructive sleep apnea (adult) (pediatric)
CPT/HCPCS: 80048; 82550; 85025; 96360; 96372; 99284; A9270; J2060; J7030

== ENCOUNTER 2016-06-26 20:41 | Emergency (ER) | payer MEDICARE, OTHER ==
[~2016-06-26] VITALS: Ht 182.9 cm; Wt 96.4 kg
[~2016-06-26 20:41] MED LIST changes: +CLON0.5T PO; +DIVA500T4 PO; -OMEP20CA10 PO
--- OUTSIDE RECORDS SUMMARY | 2016-06-26 20:45 | XMS REPORT | Continuity of Care Document ---
Author Author [facility] Organization [facility] Address Unknown Phone Unavailable Care Team Providers Care Sap Bw Architect Name Role Phone Primary Care Physician Unavailable Source Comments Some departments are not documenting in the electronic medical record. If you do not see the information that you expected, contact Release of Information in the Health Information Management department at [phone] for further assistance in locating additional records.[facility] Active Allergies and Adverse Reactions No Known [...] at. He will follow-up with his home [facility] health care providers. I also discussed with [...]
--- OUTSIDE RECORDS SUMMARY | 2016-06-26 20:45 | XMS REPORT | Summary of Care ---
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 * Start 17-Dec-2015 Active Supplies please increase BiPAP pressures to ipap of 14 epap of 8, DX KOTA G47.33 * Quantity: 1 Refills: 0 Tungate Liset FERNANDEZissa * Start 17-Mar-2016 Active Supplies BiPAP supplies, masks, equipment, and maintance. Dx KOTA. please send download of data today and in one month to our office in [place]. * Quantity: 1 Refills: 0 Tungate SPOT SPRAYER, Mary Jane * Start 16-Jun-2016 Active Allergies and Adverse Reactions Name Dates [...] smoker Vital Signs Date Test Result Details 16-Jun-2016 09:59 BP Systolic 132 mm[Hg] Status: Comments: Location: ; Position: BP Diastolic 80 mm[Hg] Status: Comments: Location: ; Position: Heart Rate 95 /min Status: Comments: Location: ; Physical Findings 18 Status: Comments: Respiration Height 72 in Status: Weight 212 lb Status: Physical Findings 97 Status: Comments: O2 Saturation Body Mass Index Calculated 28.75 kg/m2 Status: Body Surface Area Calculated 2.18 m2 Status: Results Date Description Value Details Results not documented Plan of Care Name Dates Details Planned Observations Planned Goals not documented Planned Encounters Appointment; Provider: Mary Jane Patel A.P.R.N. On 14-Jul-2016 11:15 Interventions Provided Medication Changes* Supplies - Start Instructions Name Dates Details Instructions not documented Encounters Appointment; Mary Jane Patel A.P.R.N. Encounter Diagnosis: Problem not documented On 17-Mar-2016 11:15 Appointment; Toan Medley M.D. Encounter Diagnosis: Problem not documented On 17-Dec-2015 10:00 Appointment; Toan Medley M.D. Encounter Diagnosis: Problem not documented On 01-Dec-2015 09:00 Appointment; Toan Medley M.D. Encounter Diagnosis: Problem not documented On 09:15 Appointment; Ankush Moya M.D. Encounter Diagnosis: Problem not documented On 02-Jul-2015 08:30
--- OUTSIDE RECORDS SUMMARY | 2016-06-26 20:46 | XMS REPORT | Summary of Care ---
Author Author Jorge FERNANDEZ Mary Jane Organization Unknown Address [address], [place] [id number] Phone Unavailable Care Team Providers Care Ticket Counter Name Role Phone Lion Rose, Gary Unavailable Unavailable Mary Jane Patel APRN Unavailable Unavailable Griffin Rose, Melonie Unavailable Unavailable Jasmyne Rose, Alba Unavailable Unavailable Wedel, L Unavailable Unavailable Unavailable Unavailable Functional Status [...] * Refills: 0 * Start 23-Jan-2014 Active [place] 10-325 MG Oral Tablet TAKE 1 TABLET [...] cm H2O, Permanent use, G47.33, Heated humidity, [id number], mask, headgear, filters, heated tubing, water chamber,chinstrap * Quantity: 1 Refills: 0 Toan Medley M.D. * Start 17-Dec-2015 Active Supplies please increase BiPAP pressures to ipap of 14 epap of 8, DX KOTA G47.33 * Quantity: 1 Refills: 0 Mary Jane Patel APRN * Start 17-Mar-2016 Active Supplies BiPAP supplies, masks, equipment, and maintance. Dx KOTA. please send download of data today and in one month to our office in [place]. * Quantity: 1 Refills: 0 Mary Jane Patel APRN * Start 16-Jun-2016 Active Oxygen nocturnal oximetry on room air and on BiPAP (dx G47.33)fax results to * Quantity: 1 Refills: 0 Sonu Seymour M.D. * Start 20-Jun-2016 Active Supplies increase Vpap settings to min pressure support of 5 max pressure support of 10, min EPAP 8 Max IPAP 18. assist client with mask fit * Quantity: 1 Refills: 0 Mary Jane Patel APRN * Start 20-Jun-2016 Active Allergies and Adverse Reactions Name Dates [...] Interventions Provided Medication Changes* Supplies - Start * Supplies - Start Instructions Name Dates Details Instructions not documented Encounters Appointment; Mary Jane Patel A.P.R.N. Encounter Diagnosis: Problem not documented On 17-Mar-2016 11:15 Appointment; Toan Medley M.D. Encounter Diagnosis: Problem not documented On 17-Dec-2015 10:00 Appointment; Toan Medley M.D. Encounter Diagnosis: Problem not documented On 01-Dec-2015 09:00 Appointment; Toan Medley M.D. Encounter Diagnosis: Problem not documented On 09:15 Appointment; Anuksh Moya M.D. Encounter Diagnosis: Problem not documented On 02-Jul-2015 08:30
--- OUTSIDE RECORDS SUMMARY | 2016-06-26 20:48 | XMS REPORT | Continuity of Care Document ---
Author Author [facility] Organization [facility] Address Unknown Phone Unavailable Support Name Relationship Address Phone JULYELISABET DO Caregiver [address] [place] [address] Unavailable SHAGUFTA KIMBALL Caregiver [address] [place] [address] Unavailable ANTONIO MANCILLA Next Of Kin [address], [place] [id number] Insurance Providers Guarantor Sandeep Mancilla Address [address] [place] [address] Email DENIED 16 Payer [employer] Policy Number [id number] Subscriber's Name Sandeep Mancilla Relationship 18 Self Group Number PLANE Effective Date 00 Payer Medicare Policy Number [id number] Subscriber's Name Sandeep Mancilla Relationship 18 Self Effective Date 00 Chief Complaint and Reason for Visit Chief Complaint Headache Reason for Visit Myoclonus [id number] Problems Active Problems Medical Problem Onset Date [...] Acute Numbness of right hand Unknown Acute KOTA treated with BiPAP Unknown Acute Pulmonary embolism Unknown Acute Restless [...] Route Directions Days Qty Instructions Start Date Acetaminophen/Hydrocodone Bitart ([place] 10-325 Tablet) 1 Each Tablet 1 Tab Oral Every 6 Hours as needed for Pain 03/07/15 Aspirin (Aspir 81) 81 Mg Tablet.dr 81 Mg Oral Daily 03/23/12 Cholecalciferol (Vitamin D3) (Vitamin D3) 2,000 Unit Tablet 2,000 Unit Oral Daily 07/08/15 Clonazepam (Klonopin) 0.5 Mg Tablet 0.5 Tab Oral Every 12 Hrs Prn as needed for Spasms 14 Tablet 06/16/16 Divalproex Sodium (Depakote Er) 500 Mg Tab.er.24h 1 Tab Oral Bedtime 30 Days 30 Tablet 06/16/16 Finasteride 5 Mg Tablet 5 Mg Oral Bedtime 06/02/09 Furosemide 20 Mg Tablet 1 Tab Oral Twice A Day 11/29/15 Magnesium Oxide 400 Mg Tablet 400 Mg Oral Daily 10/31/15 Potassium Chloride 10 Meq Capsule.er 10 Meq Oral Daily 10/31/15 Pramipexole Di-Hcl (Mirapex) 0.5 Mg Tablet 0.5 [...] Tablet, 1 Tab Oral Daily 06/02/09 Discontinued Omeprazole 20 Mg Capsule.dr, 20 Mg Oral Daily 10/31/15 Discontinued Red Yeast Rice Extract (Red Yeast [...] Onset Date Status Hx Substance Use No 06/15/2016 10:30pm Not Applicable Not Applicable Hx Alcohol Use No 06/15/2016 10:30pm Not Applicable Not Applicable Has the pt used tobacco in the last 12 months No 08/19/2015 6:45pm Not Applicable Not Applicable Tobacco Usage none 07/08/2015 10:16am Not Applicable Not Applicable Query Response Start Date Stop Date Smoking Status Former smoker Hospital Discharge Instructions No hospital discharge instructions. Plan of Care Discharge Date 06/16/16 1:14am Disposition 01 DISCHARGED HOME, SELF-CARE Condition at Discharge Improved Instructions/Education Provided Muscle Spasm (ED) Prescriptions See Medication Section Referrals SHAGUFTA KIMBALL Order Date: 1 Week Address: [address] [place] [id number] Note: GARFIELD ZAMORA MD Order Date: 1 Week Address: [address] [place] [address] [phone] Additional Instructions/Education We have treated your spasms in the ER. Take the depakote at night to help with your spasms. Use the klonazepam only for spasms that don't respond to the depakote. Follow up with your doctor. Call Dr. Zamora's office for a follow up appointment. Care Plan and Goals Physician Care Plan Problem: Myoclonus Goal: Follow up with primary care provider Instructions: Take medications and follow care plan as discussed/written Functional Status No functional status results. Allergies, Adverse Reactions, Alerts Allergen Type Severity Reaction Status Last Updated hydrocodone bit Adverse Reaction Unknown HALLUCINATIONS Active 06/15/16 Zbsgnlw-Tvi-Jrd Reductase Inhibitor Allergy Unknown Active 06/15/16 Immunizations Query Response on File Recorded Date/Time Hx Influenza Vaccination Y 01/1508/19/15 6:45pm Hx Pneumococcal Vaccination Y 201308/19/15 6:45pm Hx Tetanus, Diptheria, Pertussis UNKNOWN 03/23/12 6:57pm Hx Influenza Vaccination Y 01/1508/19/15 6:45pm Hx Tetanus, Diptheria, Pertussis UNKNOWN 03/23/12 6:57pm Hx Tetanus Toxoid Vaccination N "MANY YEARS AGO" 04/25/09 7:00pm Influenza Vaccine Hx 201506/15/16 10:30pm Tetanus Diptheria Vaccine History UTD 06/15/16 10:30pm Vital Signs Acute Vital Signs Vital Response Date/Time Temperature (Fahrenheit) 98.3 deg F (96.8 - 99.1) 06/15/2016 10:05pm Temperature (Calculated Celsius) 36.72499 degrees C (36.0 - 37.3) 06/15/2016 10:05pm Pulse Rate (adult) 76 bpm (60 - 100) 06/16/2016 12:48am Respiratory Rate 16 breaths/min (10 - 20) 06/16/2016 12:48am O2 Sat by Pulse Oximetry 98 % (90 - 100) 06/16/2016 12:48am Blood Pressure 142/67 mm Hg 06/16/2016 12:48am Height (Feet) 6 feet 06/15/2016 10:05pm Height (Inches) 0 inches 06/15/2016 10:05pm Weight (Kilograms) 96.400 kg 06/15/2016 10:05pm Body Mass Index (BMI) 28.0 06/15/2016 10:05pm Results Laboratory Results Test Name Result Units Flags Reference Collection Date/Time Result Date/ Time Comments White Blood Count 6.0 T/MM3 4.5-11.0 06/15/2016 11:55pm 06/16/2016 12: 01am Red Blood Count 4.69 M/MM3 4.50-5.90 06/15/2016 11:55pm 06/16/2016 12: 01am Hemoglobin 14.0 GM/DL 13.5-17.5 06/15/2016 11:55pm 06/16/2016 12:01am Hematocrit 40.8 % L 41-53 06/15/2016 11:55pm 06/16/2016 12:01am Mean Corpuscular Volume 87.0 UM3 80-100 06/15/2016 11:55pm 06/16/2016 12:01am Mean Corpuscular Hemoglobin 29.9 UUG 26-34 06/15/2016 11:55pm 2016 12:01am Mean Corpuscular Hemoglobin Concent 34.3 GM/DL 31-37 06/15/2016 11:55pm 06/16/2016 12:01am RDW Standard Deviation 44.0 FL 36.9-50.2 06/15/2016 11:55pm 06/16/2016 12:01am Platelet Count 198 T/MM3 130-400 06/15/2016 11:55pm 06/16/2016 12:01am Mean Platelet Volume 8.5 UM3 L 9.4-12.4 06/15/2016 11:55pm 06/16/2016 12 :01am Neutrophils (%) (Auto) 52.1 % 33-66 06/15/2016 11:55pm 06/16/2016 12: 01am Lymphocytes (%) (Auto) 38.2 % 23-45 06/15/2016 11:55pm 06/16/2016 12: 01am Monocytes (%) (Auto) 7.2 % 0-9.0 06/15/2016 11:pm 06/16/2016 12:01am Eosinophils (%) (Auto) 2.0 % 0-4 06/15/2016 11:06/16/2016 12:01am Basophils (%) (Auto) 0.3 % 0-2 06/15/2016 11:06/16/2016 12:01am Immature Granulocyte % (Auto) 0.2 % 0.0-0.5 06/15/2016 11:55pm 2016 12:01am Absolute Neutrophils (auto) 3.1 T/MM3 1.8-7.7 06/15/2016 11:pm 2016 12:01am Absolute Lymphocytes (auto) 2.3 T/MM3 1-4.8 06/15/2016 11:2016 12:01am Absolute Monocytes (auto) 0.4 T/MM3 0-0.8 06/15/2016 11:552016 12:01am Absolute Eosinophils (auto) 0.1 T/MM3 0-0.5 06/15/2016 11:55pm 2016 12:01am Absolute Basophils (auto) 0.0 T/MM3 0-0.2 06/15/2016 11:pm 2016 12:01am Absolute Immature Granulocyte (auto 0.01 T/MM3 0.00-0.03 06/15/2016 11: 5506/16/2016 12:01am Icterus Index < 2 0-7 06/15/2016 11:06/16/2016 12:11am Chemistry Specimen Hemolysis < 15 0-25 06/15/2016 11:55pm 06/16/2016 12:11am 0-25: Specimen Exhibited No Hemolysis. Turbidity < 20 0-20 06/15/2016 11:55pm 06/16/2016 12:11am Sodium Level 144 MEQ/L 134-144 06/15/2016 11:55pm 06/16/2016 12:11am Potassium Level 4.2 MEQ/L 3.6-5 06/15/2016 11:55pm 06/16/2016 12:11am Chloride Level 105 MEQ/L 98-107 06/15/2016 11:55pm 06/16/2016 12:11am Carbon Dioxide Level 25 MEQ/L 22-30 06/15/2016 11:55pm 06/16/2016 12: 11am Anion Gap 14 MEQ/L 5-15 06/15/2016 11:55pm 06/16/2016 12:11am Blood Urea Nitrogen 29.0 MG/DL H 9-20 06/15/2016 11:55pm 06/16/2016 12: 11am Creatinine 0.8 MG/DL 0.8-1.5 06/15/2016 11:55pm 06/16/2016 12:11am BUN/Creatinine Ratio 36 RATIO H 6-26 06/15/2016 11:55pm 06/16/2016 12: 11am Glomerular Filtration Rate Calc 93 06/15/2016 11:55pm 06/16/2016 12 :11am Glucose Level 153 MG/DL H 75-110 06/15/2016 11:55pm 06/16/2016 12:11am Calculated Osmolality 286 MOSM/KG H 261-280 06/15/2016 11:55pm 2016 12:11am Calcium Level 9.3 MG/DL 8.4-10.2 06/15/2016 11:55pm 06/16/2016 12:11am Total Creatine Kinase 270 U/L H 55-170 06/15/2016 11:55pm 06/16/2016 12: 11am Procedures Procedure Status Date Provider(s) [id number] ITEM OR SERVICE Completed 03/23/16 E&M LEVEL - FACILITY Completed 03/23/16 E&M LEVEL - FACILITY Completed 03/28/16 Lower extremity study Completed 04/22/16 Encounters Encounter Location Arrival/Admit Date Discharge/Depart Date Attending Provider Registered Emergency Room [facility] 06/15/16 9:59pm JULY, ELISABET Thomason DO Registered [facility] 05/02/16 12:30pm PRAMOD WRIGHT MD Registered Clinic [facility] 04/22/16 10:29am GABY ZHONG MD Registered [facility] 03/28/16 11:19am AGUILAR ARANGO MD Registered [facility] 03/23/16 9:58am AGUILAR ARANGO MD Recent Diagnosis
--- OUTSIDE RECORDS SUMMARY | 2016-06-26 20:48 | XMS REPORT | Continuity of Care Document ---
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 Type Provider Facility Loc./Unit Complaint [id number] 06/05/2013 14:37:00 06/05/2013 23 :59:59 CLS Outpatient [id number] 04/02/2013 14:53:00 04/02/2013 23 :59:59 CLS Outpatient
[2016-06-26 20:55] VITALS: Ht 182.9 cm; Wt 96.4 kg
--- OUTSIDE RECORDS SUMMARY | 2016-06-26 21:35 | XMS REPORT | Continuity of Care Document ---
Author Author [facility] Organization [facility] Address Unknown Phone Unavailable Care Team Providers Care Surgical Garment Fitter Name Role Phone Primary Care Physician Unavailable Source Comments Some departments are not documenting in the electronic medical record. If you do not see the information that you expected, contact Release of Information in the Health Information Management department at [phone] for further assistance in locating additional records.[facility] Active Allergies and Adverse Reactions No [...] at. He will follow-up with his home [facility] health care providers. I also discussed [...]
--- OUTSIDE RECORDS SUMMARY | 2016-06-26 21:38 | XMS REPORT | Continuity of Care Document ---
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 Type Provider Facility Loc./Unit Complaint [id number] 06/05/2013 14:37:00 06/05/2013 23 :59:59 CLS Outpatient [id number] 04/02/2013 14:53:00 04/02/2013 23 :59:59 CLS Outpatient
[2016-06-26] MEDS ORDERED: LORAZEPAM 2 MG/ML INJECTION IM ONE (22:00)
--- NOTE | 2016-06-26 22:45 | NUR ---
STATUS PT IS RESTING QUIETLY. PT IS STILL AT THIS TIME. FAMILY IN ROOM AT BEDSIDE
[2016-06-26] MEDS ORDERED: LORA-204 PO (23:04)
--- NOTE | 2016-06-26 23:05 | ERPDOC ---
Departure Disposition Decision Date: Jun 26, 2016 Disposition Decision Time: 23:02 Disposition: 01 DISCHARGED HOME, SELF-CARE Impression Impression Impression: Primary Impression: Myoclonic disorder Severity: Moderate Condition: Improved Seen By: Physician only Referrals: SHAGUFTA KIMBALL (Family) 1 Week GARFIELD PETERS MD 1 Week Patient Instructions: Muscle Spasm (ED) Problems/Meds/Labs Reviewed?: Yes Medications reviewed and manag: Yes Additional Instructions: You have muscle spasms. Continue to take the medications prescribed to you for this. Take the ativan only if you have spasms that are not controlled with your other medications. Follow up with Dr. Peters. Follow up care ordered?: Yes Mental Status: Alert, Oriented Scripts Lorazepam (Ativan) 1 Mg Tablet 1 MG PO Q8HPRN for 14 Days, #30 TAB Prov: ELISABET SEAMAN DO 06/26/16 HPI - General Medical General Chief Complaint: General Stated Complaint: UNCONTROLABLE JERKING Time Seen by Provider: 20:58 Source: patient, family Exam Limitations: no limitations HPI - General Medical Initial Comments 80yo man presented to the ER by family for 'seizures'. His sx are identical to his prior ER visits for tremors. Occurred At: home Onset: Rapid Duration: 1-3 hrs Hx of Similar Symptoms: Yes Allergies: Coded Allergies: Msgutmh-Bvd-Yag Reductase Inhibitor (Verified Allergy, Unknown, 06/15/16) hydrocodone bit (Verified Adverse Reaction, Unknown, HALLUCINATIONS, ) Past History Patient Medical History (1) Tremor Patient Surgical History CABG- October of 2015 Past Medical History Metabolic: hypertension ENMT: sleep apnea Cardiac: A-fib, CAD, [place] Respiratory: pulmonary embolus GI: gallbladder disease Male: BPH Neurological: seizures Musculoskeletal: back pain, neck pain Hematologic: DVT Surgical History General: appendix, back, gallbladder, hernia, neck Cardiac: cardiac bypass, cardiac cath Joint: carpal tunnel Family History Family PMH: FOUND: hypertension Vaccines Hx Influenza Vaccination: Yes (01/15) Hx Pneumococcal Vaccination: Yes (2013) Social History Substance Use Type: does not use Alcohol Intake: none Marital Status: Sexuality: female partner Household Members: spouse Review of Systems Neurological General: tremor All other Systems All Other Systems: Reviewed and Negative Physical Exam General General Nourishment: well nourished, well developed, appears stated age, no acute distress, adult, obese Vitals and Pain First Documented Vital Signs Date Time Temp Pulse Resp B/P Pulse Ox O2 Delivery O2 Flow Rate FiO2 06/26/16 20:55 99.1 98 20 122/72 92 Room Air Weight: Kilograms: 96.400 Height (feet): 6 Height (inches): 0 Triage Pain Scale: Neurologic (brief) Neurological Brief: FOUND: CN w/o gross def to obs, DTR 2/4 all extremities, gait w/o gross def to obs, motor-no gross deficits, sensory-no gross deficits, NOT FOUND: Babinski Comments Inconsistent, variable myoclonus. Sx eli when pt is not observed; become severe when pt is monitored. Supervisory Exam Body Habitus: well groomed Head: atraumatic Eyes: PERRL Nares: no exudate Neck: trachea midline Chest: symmetric Abdomen: non-distended Musculoskeletal: no deformity or atrophy Skin: pink, dry Psychological: alert, appropriate Differential Diagnoses Considering: Drug Overdose, Hypo/Hyperglycemia, Hypo/Hyperkalemia, Hypo/ Hypernatremia, Metabolic, Psychosis, Other (Conversion D/o) Progress Results/Orders Orders Procedure Category Date Status Time Lorazepam (Ativan) PHA 06/26/16 Complete 22:00 Medications Current ED Medications Lorazepam (Ativan) 1 mg O ONCE IM Last administered on 06/26/16t 21:57; Start 06/26/16 at 22:00; Stop 06/26/16 at 22:01; Status DC Progress Progress Pt is well-known to this ER; has been evaluated numerous times for his tremor and found to not have seizures. He is being treated by a neurologist, who has previously recommended prn benzo's for tremors not controlled by his medications. Will give pt a benzo and observe. Sx now resolved. Pt is sleeping. Discussed need for continued f/u with neuro and PCM to cont workup and treatment. ELISABET SEAMAN DO Jun 26, 2016 23:05
[2016-06-26 23:20] VITALS: BP 132/60; PULSE 64; RESP 18; TEMP 98.8; O2SAT 93
--- NOTE | 2016-06-26 23:20 | NUR ---
DEPART PT AND ARE GIVEN DISMISSAL INSTRUCTIONS WITH VERBAL UNDERSTANDING. IS GIVEN SCRIPT X1. PT IS TAKEN BY W/C TO PRIVATE VEHICLE WITH FAMILY. PT IS STILL AND NO LONGER HAVING THE MOVEMENTS HE HAD AT FIRST ARRIVAL
== END 2016-06-26 23:20 | disposition home or self-care (01) ==
LOC: ED 20:41
DX: G25.3 Myoclonus (principal)
CPT/HCPCS: 96372; 99283; J2060

== ENCOUNTER → 2016-06-27 | Outpatient (CLI) | payer MEDICARE, OTHER ==
[~2016-06-27] MED LIST changes: +GADOBUTROL 10mMol/10ml INJECTION IV ONE; +LORA-204 PO; +SALINE FLUSH 10ml SYRINGE ONE
--- NOTE | 2016-06-27 10:00 | DI ---
Indication: ITS.REASON: G25.3 SPINAL STENOSIS PROCEDURE: MRI CERVICAL SPINE W/WO CONTRA: Encounter: Initial Comparison: None Technique: Multiplanar multisequence MR imaging of the cervical spine was performed with and without contrast. Contrast: 9.5 mL Gadavist Findings: The patient has had corpectomy of C4, C5, and C6 with fusion at these levels. Is no abnormal area of enhancement. No paraspinal abnormality. C2-C3 demonstrates a fairly large central disc extrusion that effaces the ventral thecal sac but does not flatten the cervical cord. There is no significant neural foraminal encroachment. No intrinsic spinal cord abnormality. Incidentally noted is an asymmetric broad-based disc bulge on the right at T2-T3 with moderate right neural foraminal encroachment. Impression: Fairly large central disc extrusion at C2-3 that effaces the ventral thecal sac but does not flatten the cervical cord. No intrinsic spinal cord abnormality. No abnormal area of enhancement. Postoperative changes of fusion C4-C6 with anatomic alignment. .
== END ==
LOC: IMA 08:29
PROVIDERS: ATTEND Psychiatry & Neurology Neurology
DX: M50.21 Other cervical disc displacement, high cervical region (principal); Z98.1 Arthrodesis status; G25.3 Myoclonus
CPT/HCPCS: 72156; A9585

== ENCOUNTER → 2016-07-05 | Outpatient (CLI) | payer MEDICARE, OTHER ==
[~2016-07-05] MED LIST changes: -GADOBUTROL 10mMol/10ml INJECTION IV ONE; -SALINE FLUSH 10ml SYRINGE ONE
== END ==
LOC: NEU 13:35
PROVIDERS: ATTEND Psychiatry & Neurology Neurology
DX: G25.3 Myoclonus (principal)
CPT/HCPCS: 95819